=== PATIENT | female | born 1995 | race Caucasian/White ===

== ENCOUNTER 2019-01-28 04:37 | Emergency (ER) | payer OTHER ==
[2019-01-28 04:51] VITALS: BP 107/64; PULSE 97; TEMP 98.3; BMI 20.6
[2019-01-28] MEDS ORDERED: SODIUM CHLORIDE 1,000 ML IV STA (05:17)
[2019-01-28] MEDS ORDERED: ONDANSETRON 4 MG/2 ML VIAL IVPUSH ONE (05:18)
[2019-01-28 05:24] LABS: HCG,QUALITATIVE URINE Negative; URINE APPEARANCE CLEAR; URINE BILIRUBIN NEGATIVE (NEGATIVE); URINE CASTS 1 /lpf (0-8); URINE COLOR YELLOW; URINE GLUCOSE (UA) NEGATIVE (NEGATIVE); URINE KETONE NEGATIVE (NEGATIVE); URINE LEUK ESTERASE NEGATIVE (NEGATIVE); URINE NITRITE NEGATIVE (NEGATIVE); URINE PROTEIN NEGATIVE (NEGATIVE); URINE RBC 3 /hpf (0-4); URINE UROBILINOGEN 0.2 mg/dL (0.2-1.0); URINE WBC 1 /hpf (0-5)
--- NOTE | 2019-01-28 05:25 | PDOC ---
History of Present Illness - General Chief Complaint: Pain Stated Complaint: ABD PAIN Time Seen by Provider: 01/28/19 04:53 History Source: Patient Exam Limitations: No Limitations - History of Present Illness Initial Comments: 01/28/19 05:19 23 yo female pmh lactose intolerance presents to the ED with 1 day of NB/NB vomiting, diarrhea and epigastric pain. Admits to 6 episodes of NB/NB vomiting, inability to keep down food or drinks. Denies F/C, burning/increased frequency of urination, blood in the stool, sick contacts. Pt returned from [place] after a 16 day trip yesterday, denies N/V or diarrhea on her trip, also admits to drinking and eating lactose containing products recently. Past History - Past Medical History Allergies/Adverse Reactions: Allergies Allergy/AdvReac Type Severity Reaction Status Date / Time No Known Allergies Allergy Verified 12/04/11 23:26 Home Medications: Ambulatory Orders Ondansetron [Zofran Odt] 8 mg PO Q8H PRN #2 tab.rapdis 12/05/11 - Surgical History Appendectomy: Yes - Immunization History Immunization Up to Date: Yes - Suicide/Smoking/Psychosocial Hx Smoking Status: No Smoking History: Never smoked Have you smoked in the past 12 months: No Number of Cigarettes Smoked Daily: 0 Information on smoking cessation initiated: No Hx Alcohol Use: No Drug/Substance Use Hx: No Review of Systems - Review of Systems Constitutional: No: Chills, Fever Respiratory: No: Shortness of Breath Cardiac (ROS): No: Chest Pain ABD/GI: Yes: Diarrhea, Nausea, Vomiting, Other (epigastric abdominal pain). No : Constipated : No: Burning, Dysuria, Discharge, Frequency, Flank Pain, Hematuria, Incontinence Musculoskeletal: No: Back Pain Neurological: No: Weakness *Physical Exam - Vital Signs Last Vital Signs Temp Pulse Resp BP Pulse Ox 98.3 F 97 H 20 107/64 100 01/28/19 04:47 01/28/19 04:47 01/28/19 04:47 01/28/19 04:47 01/28/19 04:47 ED Treatment Course - LABORATORY CBC & Chemistry Diagram: 01/28/19 05:30 01/28/19 05:30 Medical Decision Making - Medical Decision Making 01/28/19 05:57 23 yo female pmh lactose intolerance presents to the ED with 1 day of NB/NB vomiting, diarrhea and epigastric pain. Admits to 6 episodes of NB/NB vomiting, inability to keep down food or drinks. Denies F/C, burning/increased frequency of urination, blood in the stool, sick contacts. Pt returned from [place] after a 16 day trip yesterday, denies N/V or diarrhea on her trip, also admits to drinking and eating lactose containing products recently. *DC/Admit/Observation/Transfer Diagnosis at time of Disposition: Vomiting, Diarrhea - Discharge Dispostion Disposition: HOME Condition at time of disposition: Stable Decision to Admit order: No - Referrals Referrals: Dalila Parsons MD [Primary Care Provider] - Kenneth Reid MD [Staff Physician] - - Patient Instructions Printed Discharge Instructions: DI for Diarrhea and Traveler's Diarrhea -- Adult, DI for Vomiting -- Adult Additional Instructions: Please see your primary doctor within the next 48 hours. If the symptoms do not resolve within the next few days, make an appointment to se the GI doctor referred to you due to your recent trip from [place]. Return to the ER for new or concerning symptoms including but not limited to: inability to eat or drink, high fevers, profuse vomiting, blood in the stool or vomit. Thank you - Post Discharge Activity
--- NOTE | 2019-01-28 05:34 | PDOC ---
Attending Attestation - Resident Resident Name: Ronal Knapp - ED Attending Attestation I have performed the following: I have examined & evaluated the patient, The case was reviewed & discussed with the resident, I agree w/resident's findings & plan - HPI HPI: 01/28/19 05:27 Pt comes with gastroenteritis vs lactose induced upset stomach. She has had some diarrhea and abd bloated feeling. She just returned from [place]. - Physicial Exam PE: 01/28/19 05:28 Agree with resident exam. - Medical Decision Making 01/28/19 06:12 Chem is normal; UA normal; she's not 01/28/19 06:37 CBC is slightly elevated WBC; consistent with viral gastroenteritis. Pt is stable for d/c home. She is tolerating PO and she will follow up with GI to r/ o H pylorii.
[2019-01-28 05:41] LABS: BASO % 0.3 % (0-2.0); EOS % 0.2 % (0-4.5); HEMATOCRIT 43.5 % (32.4-45.2); HEMOGLOBIN 14.7 GM/dL (10.7-15.3); LYMPH % 10.1 % (8-40); MCH 29.6 pg (25.7-33.7); MCHC 33.8 g/dl (32.0-36.0); MEAN CELL VOLUME 87.6 fl (80-96); MEAN PLT VOLUME 8.1 fl (7.5-11.1); MONO % 6.4 % (3.8-10.2); PLATELET COUNT 241 K/MM3 (134-434); RBC 4.97 M/mm3 (3.60-5.2); RDW 12.9 % (11.6-15.6); WHITE BLOOD COUNT 12.7 K/mm3 (4.0-10.0)
[2019-01-28] MEDS ORDERED: ACETAMINOPHEN 1000 MG/100 ML VIAL (NON FORMULARY) IVPB ONE (05:46)
[2019-01-28] MEDS ORDERED: ACETAMINOPHEN INJECTION 100 ML IVPB ONE (06:05)
[2019-01-28] MEDS ORDERED: ONDANSETRON 4 MG/2 ML VIAL ONE (06:05)
[2019-01-28 06:09] LABS: ALBUMIN 4.6 g/dl (3.4-5.0); ALK PHOS 63 U/L (45-117); ANION GAP 11 MMOL/L (8-16); BILIRUBIN,TOTAL 0.4 mg/dL (0.2-1); BLOOD UREA NITROGEN 14 mg/dL (7-18); CALCIUM 9.1 mg/dL (8.5-10.1); CHLORIDE 107 mmol/L (98-107); CO2 24 mmol/L (21-32); CREATININE 0.7 mg/dL (0.55-1.3); GLUCOSE,RANDOM 105 mg/dL (74-106); LIPASE 106 U/L (73-393); POTASSIUM 3.7 mmol/L (3.5-5.1); SGOT/AST 16 U/L (15-37); SGPT/ALT 24 U/L (13-61); SODIUM 142 mmol/L (136-145); TOT PROT 8.1 g/dl (6.4-8.2)
== END 2019-01-28 07:10 | disposition home or self-care (01) ==
LOC: JER 04:37
PROC: 3E0337Z Introduction of Electrolytic and Water Balance Substance into Peripheral Vein, Percutaneous Approach (ICD-10-PCS; principal; 2019-01-28)
PROC: 3E033NZ Introduction of Analgesics, Hypnotics, Sedatives into Peripheral Vein, Percutaneous Approach (ICD-10-PCS; 2019-01-28)
DX: A08.4 Viral intestinal infection, unspecified (principal); B97.89 Other viral agents as the cause of diseases classified elsewhere; E73.9 Lactose intolerance, unspecified
CPT/HCPCS: 36415; 80053; 81003; 83690; 84703; 85025; 96361; 96374; 99282-25; J0131; J7030

== ENCOUNTER 2019-04-16 18:09 | Emergency (ER) | payer OTHER ==
--- NOTE | 2019-04-16 18:25 | PDOC ---
Rapid Medical Evaluation Chief Complaint: Rash Time Seen by Provider: 04/16/19 18:22 Medical Evaluation: Allergies Allergy/AdvReac Type Severity Reaction Status Date / Time No Known Allergies Allergy Verified 12/04/11 23:26 04/16/19 18:22 HPI: Painful lesions x8 days seen by PCP but not helpful on Bactrim PE: cellulitic visicular lesions R abdomen and L arm ORDERS: Labs and Tylenol Discharge Disposition - Diagnosis Cellulitis - Referrals Referrals: Dalila Parsons MD [Primary Care Provider] - - Patient Instructions - Post Discharge Activity
[2019-04-16 18:34] VITALS: BP 136/84; PULSE 89; TEMP 98.5; BMI 21.5
--- NOTE | 2019-04-16 19:42 | PDOC ---
*Physical Exam - Vital Signs Last Vital Signs Temp Pulse Resp BP Pulse Ox 98.5 F 89 18 136/84 99 04/16/19 18:30 04/16/19 18:30 04/16/19 18:30 04/16/19 18:30 04/16/19 18:30 Medical Decision Making - Medical Decision Making 04/16/19 19:41 Patient seen by the advanced practice provider under my direct supervision. Ancillary testing reviewed as necessary. I agree with plan as outlined by the advanced practice provider. *DC/Admit/Observation/Transfer Diagnosis at time of Disposition: Cellulitis - Referrals Referrals: Dalila Parsons MD [Primary Care Provider] - - Patient Instructions - Post Discharge Activity
[2019-04-16] MEDS ORDERED: ACETAMINOPHEN 500 MG TABLET (FP) PO ONE (19:49)
[2019-04-16] MEDS ORDERED: CEFAZOLIN 1 GM/D5W 1 GM/50 ML BAG IVPB ONE (19:49)
--- NOTE | 2019-04-16 19:49 | PDOC ---
History of Present Illness - General Chief Complaint: Rash Stated Complaint: RASH Time Seen by Provider: 04/16/19 18:22 History Source: Patient - History of Present Illness Initial Comments: 04/16/19 19:44 23 year old female c/o pustules/ redness to abdomen, left elbow, , right upper arm. fluctuant mass olive size to right groin with erythema and tenderness. denies fever and chills. patient was seen today by PCP and was started on bactrim. patient came to the ER due to pain. Past History - Past Medical History Allergies/Adverse Reactions: Allergies Allergy/AdvReac Type Severity Reaction Status Date / Time No Known Allergies Allergy Verified 04/16/19 22:37 Home Medications: Ambulatory Orders Cephalexin Monohydrate [Keflex -] 500 mg PO Q8H #30 capsule 04/16/19 Mupirocin Ointment [Bactroban] 1 applic TP BID #1 tube 04/16/19 COPD: No - Surgical History Appendectomy: Yes - Immunization History Immunization Up to Date: Yes - Suicide/Smoking/Psychosocial Hx Smoking Status: No Smoking History: Never smoked Have you smoked in the past 12 months: No Number of Cigarettes Smoked Daily: 0 Hx Alcohol Use: No Drug/Substance Use Hx: No Review of Systems - Review of Systems Able to Perform ROS?: Yes Is the patient limited Indonesian proficient: No Constitutional: No: Symptoms Reported, See HPI, Chills, Diaphoresis, Fever, Loss of Appetite, Malaise, Night Sweats, Weakness, Weight Stable, Unintentional Wgt. Loss, Unexplained wgt Loss, Other ABD/GI: No: Symptoms Reported, See HPI, Abdominal Distended, Abd. Pain w/ defecation, Blood Streaked Bowels, Constipated, Diarrhea, Difficulty Swallowing , Nausea, Poor Appetite, Poor Fluid Intake, Rectal Bleeding, Vomiting, Indigestion, Abdominal cramping, Tarry Stools, Other *Physical Exam - Vital Signs Last Vital Signs Temp Pulse Resp BP Pulse Ox 98.5 F 89 18 136/84 99 04/16/19 18:30 04/16/19 18:30 04/16/19 18:30 04/16/19 18:30 04/16/19 18:30 - Physical Exam General Appearance: Yes: Appropriately Dressed Respiratory/Chest: positive: Lungs Clear, Normal Breath Sounds Integumentary: positive: Erythema, Other (pustules/ redness to abdomen, left elbow, , right upper arm. 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 NML intact, Fully Oriented, Alert, Normal Mood/ Affect Procedures - Consent Consent obtained: Verbal - Incision and Drainage I&D Site: Right: Groin Betadine cleansed: Yes Anesthesia: 1% Lidocaine Blade Size: 11 Plain Packing: No Dressing: No ED Treatment Course - LABORATORY CBC & Chemistry Diagram: 04/16/19 21:20 04/16/19 21:20 Progress Note - Progress Note Progress Note: cellulitis and abscess multiple sites P: cbc cmp iv cefazolin outpatient pcp follow up for a wound check strict return precautions reviewed with patient *DC/Admit/Observation/Transfer Diagnosis at time of Disposition: Cellulitis Qualifiers: Site of cellulitis: unspecified site Qualified Code(s): L03.90 - Cellulitis, unspecified - Discharge Dispostion Disposition: HOME - Prescriptions Prescriptions: Cephalexin Monohydrate [Keflex -] 500 mg PO Q8H #30 capsule Mupirocin Ointment [Bactroban] 1 applic TP BID #1 tube - Referrals Referrals: Dalila Parsons MD [Primary Care Provider] - 2 Days (for a wound check) - Patient Instructions Printed Discharge Instructions: Cellulitis Additional Instructions: Warm compress to the area. Apply Bactroban as prescribed twice a day. Take Bactrim as prescribed by your doctor. Take Keflex also as prescribed Follow-up with your doctor in 2 days for wound check Return to the emergency room for any worsening symptoms were the redness is spreading or streaking. 4 with fever. - Post Discharge Activity Forms/Work/School Notes: Back to Work
[2019-04-16] MEDS ORDERED: ACETAMINOPHEN 325 MG TABLET (FP) ONE (21:19)
[2019-04-16 21:33] LABS: BASO % 0.1 % (0-2.0); EOS % 0.2 % (0-4.5); HEMATOCRIT 39.7 % (32.4-45.2); HEMOGLOBIN 13.2 GM/dL (10.7-15.3); LYMPH % 17.8 % (8-40); MCH 29.4 pg (25.7-33.7); MCHC 33.2 g/dl (32.0-36.0); MEAN CELL VOLUME 88.5 fl (80-96); MEAN PLT VOLUME 7.8 fl (7.5-11.1); MONO % 6.8 % (3.8-10.2); NEUT % 75.1 % (42.8-82.8); PLATELET COUNT 258 K/MM3 (134-434); RBC 4.48 M/mm3 (3.60-5.2); RDW 12.7 % (11.6-15.6); WHITE BLOOD COUNT 11.8 K/mm3 (4.0-10.0)
[2019-04-16 22:07] LABS: ALBUMIN 4.1 g/dl (3.4-5.0); BILIRUBIN,TOTAL 0.2 mg/dL (0.2-1); BLOOD UREA NITROGEN 9.8 mg/dL (7-18); CALCIUM 9.3 mg/dL (8.5-10.1); CREATININE 0.6 mg/dL (0.55-1.3); POTASSIUM 3.7 mmol/L (3.5-5.1); TOT PROT 7.9 g/dl (6.4-8.2)
[2019-04-16] MEDS ORDERED: KETOROLAC TROMETHAMINE 30 MG/1 ML VIAL IVPUSH ONE (22:23)
[2019-04-16] MEDS ORDERED: KETOROLAC TROMETHAMINE 30 MG/1 ML VIAL ONE (22:25)
[2019-04-16] MEDS ORDERED: CEFAZOLIN 1 GM/D5W 1 GM/50 ML BAG ONE (22:25)
== END 2019-04-16 23:45 | disposition home or self-care (01) ==
LOC: JER 18:09
PROC: 0H9AXZZ Drainage of Inguinal Skin, External Approach (ICD-10-PCS; principal; 2019-04-16)
PROC: 3E03329 Introduction of Other Anti-infective into Peripheral Vein, Percutaneous Approach (ICD-10-PCS; 2019-04-16)
PROC: 3E0333Z Introduction of Anti-inflammatory into Peripheral Vein, Percutaneous Approach (ICD-10-PCS; 2019-04-16)
DX: L02.214 Cutaneous abscess of groin (principal); L03.818 Cellulitis of other sites
CPT/HCPCS: 10060; 36415; 80053; 84703; 85025; 87070; 87186; 87205; 96365; 96375; 99282-25

== ENCOUNTER 2019-11-03 17:11 | Emergency (ER) | payer OTHER ==
[2019-11-03 17:17] VITALS: BP 131/82; PULSE 95; TEMP 98.5; BMI 21.2
[2019-11-03] MEDS ORDERED: IBUPROFEN 600 MG TABLET (FP) PO ONE ×2 (17:34→17:37)
--- NOTE | 2019-11-03 17:38 | PDOC ---
History of Present Illness - General Chief Complaint: Sore Throat Stated Complaint: THROAT PAIN Time Seen by Provider: 11/03/19 17:19 History Source: Patient Exam Limitations: No Limitations - History of Present Illness Initial Comments: 11/03/19 17:33 Patient is a 24-year-old female who presents to the ED with complaint of sore throat and fevers for the last 3 days. She states that she has difficulty swallowing and her throat feels dry. She denies any cough. She denies any sick contacts. She took Motrin about 7 hours ago and states she took about 400 mg. She denies any past medical history or allergies to medications. Past History - Past Medical History Allergies/Adverse Reactions: Allergies Allergy/AdvReac Type Severity Reaction Status Date / Time No Known Allergies Allergy Verified 11/03/19 17:17 Home Medications: Ambulatory Orders Cephalexin Monohydrate [Keflex -] 500 mg PO Q8H #30 capsule 04/16/19 Mupirocin Ointment [Bactroban] 1 applic TP BID #1 tube 04/16/19 Amoxicillin - [Amoxicillin 500mg Capsule -] 1,000 mg PO DAILY 10 Days #10 capsule 11/03/19 COPD: No - Surgical History Appendectomy: Yes - Immunization History Immunization Up to Date: Yes - Psycho Social/Smoking Cessation Hx Smoking Status: No Smoking History: Never smoked Have you smoked in the past 12 months: No Number of Cigarettes Smoked Daily: 0 Hx Alcohol Use: No Drug/Substance Use Hx: No Review of Systems - Review of Systems Comments:: 11/03/19 17:35 - Review of Systems Able to Perform ROS?: Yes Constitutional: No: Night Sweats, Weakness, positive: fever, Chills, Loss of Appetite HEENTM: No: Eye Pain, Vision changes, Ear Pain, Throat Swelling, Mouth Pain; positive: Throat Pain,Difficulty Swallowing Respiratory: No: Cough, Shortness of Breath, Wheezing, Sputum Production Cardiac (ROS): No: Chest Pain, Chest Tightness, Palpitations, Irregular Heart Beat, Edema ABD/GI: No: Nausea, Vomiting, Abdominal Pain, Diarrhea : No Dysuria, No Hematuria, No Frequency, No Urgency Musculoskeletal: No: Muscle Pain, Back Pain, Joint Pain, Muscle Weakness, Neck Pain Integumentary: No: Lesions, Rash Neurological: No: Headache, Numbness, Tingling, Weakness, Speech Difficulties *Physical Exam - Vital Signs Last Vital Signs Temp Pulse Resp BP Pulse Ox 98.5 F 95 H 18 131/82 99 11/03/19 17:15 11/03/19 17:15 11/03/19 17:15 11/03/19 17:15 11/03/19 17:15 - Physical Exam 11/03/19 17:36 - Physical Exam General Appearance: Nourished, Appropriately Dressed, No Distress HEENT: EOMI, Normal Voice, No Muffled/Hoarse voice, moderate tonsillar erythema and edema without kissing tonsils. Uvula midline without edema. Mild exudates appreciated. No Nasal Congestion, No Rhinorrhea, Hearing Grossly Normal, TMs Normal, No TM Bulging, No TM Dullness, No TM Erythema Neck: Supple, tender anterior cervical lymphadenopathy bilateral, No Rigidity, No Decreased range of motion Respiratory/Chest: Lungs Clear, Normal Breath Sounds. No Respiratory Distress, No Accessory Muscle Use Cardiovascular: Regular Rhythm, Regular Rate, S1, S2 Gastrointestinal/Abdominal: Normal Bowel Sounds, Soft. Non-tender, No Guarding , No Rebound, No Rigidity Musculoskeletal: Normal Inspection. No Decreased Range of Motion Extremity: Normal Capillary Refill, Normal Inspection Integumentary: Normal Color, Dry. 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 Plan: -Strep swab sent -Motrin p.o. given -Will reassess 11/03/19 17:50 Pt has been made aware that her strep swab was negative. I will still treat her as a strep throat with amoxcillin as I have a high suspicion for infection despite negative strep swab. I have made the patient aware that the amoxicillin may not cure her symptoms as this still may be viral. We will follow-up with the throat culture. She understands and agrees with this treatment and plan and patient is stable for discharge. The patient has been advised to follow-up with her primary doctor within 1 to 2 days for repeat evaluation. Discharge - Discharge Information Problems reviewed: Yes Clinical Impression/Diagnosis: Sore throat Condition: Stable Disposition: HOME - Additional Discharge Information Prescriptions: Amoxicillin - [Amoxicillin 500mg Capsule -] 1,000 mg PO DAILY 10 Days #10 capsule - Follow up/Referral Referrals: Dalila Parsons MD [Primary Care Provider] - - Patient Discharge Instructions Patient Printed Discharge Instructions: Sore Throat Additional Instructions: Your strep swab was negative but I am still concerned that you have a throat infection suspicious for strep throat. I will treat you with antibiotics secondary to this high suspicion. Get plenty of rest and drink plenty of fluids. Be sure to take Tylenol or ibuprofen for fevers and pain. Take the antibiotics as prescribed and complete the entire course even if you feel better. Be sure to follow-up with your primary doctor within 1 to 2 days for repeat evaluation. Like we discussed, antibiotics can all affect your control so use alternate methods of control to help prevent . - Post Discharge Activity Work/Back to School Note: Back to Work
== END 2019-11-03 17:58 | disposition home or self-care (01) ==
LOC: JERFT 17:11
DX: J02.9 Acute pharyngitis, unspecified (principal)
CPT/HCPCS: 87070; 87880; 99283-25